=== PATIENT | male | born 1995 | race Caucasian/White ===

== ENCOUNTER 2019-08-22 13:22 | Emergency (ER) | payer SELFPAY ==
--- NOTE | 2019-08-22 13:48 | EDM.PDOC ---
ED HPI GENERAL MEDICAL PROBLEM - General Chief Complaint: Upper Extremity Injury/Pain Stated Complaint: LT FINGER DISCOLORATION Time Seen by Provider: 08/22/19 13:48 Source of Information: Reports: Patient History Limitations: Reports: No Limitations - History of Present Illness INITIAL COMMENTS - FREE TEXT/NARRATIVE: HISTORY AND PHYSICAL: History of present illness: Patient is a 24-year-old male who presents to the emergency room with complaints of pain, swelling and drainage from his right index finger. Patient states last night he noticed a pustule to the distal tip of his finger and did "pop a hole in it" and drained a moderate amount. He woke up this morning with moderate pain which he describes as a tight pressure to the fingertip. He denies any injury, trauma or falls associated with the digit. Tdap UTD. Offers no systemic complaints. Review of systems: As per history of present illness and below otherwise all systems reviewed and negative. Past medical history: As per history of present illness and as reviewed below otherwise noncontributory. Surgical history: As per history of present illness and as reviewed below otherwise noncontributory. Social history: See social history for further information Family history: As per history of present illness and as reviewed below otherwise noncontributory. Physical exam: General: Well-developed and well-nourished 24-year-old male. Alert and oriented. Nontoxic-appearing and in no acute distress. HEENT: Atraumatic, normocephalic, pupils equal and reactive bilaterally, negative for conjunctival pallor or scleral icterus, mucous membranes moist, TMs normal bilaterally, throat clear, neck supple, nontender, trachea midline. No drooling or trismus noted. No meningeal signs. No hot potato voice noted. Lungs: Clear to auscultation, breath sounds equal bilaterally, chest nontender. Heart: S1S2, regular rate and rhythm without overt murmur Skin: Right index finger is loosely erythematous and tender to palpation. Unsure site noted to the pad of the distal fingertip. No area of fluctuance or induration. Otherwise remaining skin is intact, warm, dry. No lesions or rashes noted. Extremities: Atraumatic, moves all extremities per self without difficulty or deficits, negative for cords or calf pain. Neurovascular unremarkable. Neuro: Awake, alert, oriented. Cranial nerves II through XII unremarkable. Cerebellum unremarkable. Motor and sensory unremarkable throughout. Exam nonfocal. Notes: Area looks like a diffuse early cellulitis from the abscess he drained himself last evening to the distal tip of his finger. There does not appear to be anywhere that can be drained at this time. supportive care measures were reviewed and discussed. Voices understanding and is agreeable to plan of care. Denies any further questions or concerns at this time. Diagnostics: None Therapeutics: None Prescription: Bactrim DS Hydrocodone (#10) Impression: Cellulitis Plan: 1. The skin clean and dry. Continue to monitor the site for improvement. Take the antibiotic as directed. 2. Tylenol and/or ibuprofen as needed for pain management. [place] for moderate to severe pain. This medication may cause drowsiness so do not take it while driving or needing to be functioning outside of the house. 3. Follow-up with your primary caregiver as we discussed. Return to the ED as needed and as discussed. Definitive disposition and diagnosis as appropriate pending reevaluation and review of above. - Related Data Allergies Allergy/AdvReac Type Severity Reaction Status Date / Time No Known Allergies Allergy Verified 08/22/19 13:55 Home Meds: Home Meds Hydrocodone/Acetaminophen [Hydrocodon-Acetaminoph 7.5-325] 1 each PO Q6HR PRN # 10 tablet 08/22/19 [Rx] Sulfamethoxazole/Trimethoprim [Bactrim Ds Tablet] 1 each PO BID 10 Days #20 tablet 08/22/19 [Rx] Review of Systems - Review of Systems Review Of Systems: Comprehensive ROS is negative, except as noted in HPI. ED EXAM, GENERAL - Physical Exam Exam: See Below (See dictation) Departure - Departure Time of Disposition: 14:03 Disposition: Home, Self-Care 01 Clinical Impression: Cellulitis - Discharge Information Prescriptions: Hydrocodone/Acetaminophen [Hydrocodon-Acetaminoph 7.5-325] 1 each PO Q6HR PRN # 10 tablet PRN Reason: Pain Sulfamethoxazole/Trimethoprim [Bactrim Ds Tablet] 1 each PO BID 10 Days #20 tablet Instructions: Cellulitis, Adult, [id number] Referrals: PCP,None [Primary Care Provider] - Forms: ED Department Discharge Additional Instructions: The following information is given to patients seen in the emergency department who are being discharged to home. This information is to outline your options for follow-up care. We provide all patients seen in our emergency department with a follow-up referral. The need for follow-up, as well as the timing and circumstances, are variable depending upon the specifics of your emergency department visit. If you don't have a primary care physician on staff, we will provide you with a referral. We always advise you to contact your personal physician following an emergency department visit to inform them of the circumstance of the visit and for follow-up with them and/or the need for any referrals to a consulting specialist. The emergency department will also refer you to a specialist when appropriate. This referral assures that you have the opportunity for follow-up care with a specialist. All of these measure are taken in an effort to provide you with optimal care, which includes your follow-up. Under all circumstances we always encourage you to contact your private physician who remains a resource for coordinating your care. When calling for follow-up care, please make the office aware that this follow-up is from your recent emergency room visit. If for any reason you are refused follow-up, please contact the [facility] Emergency Department at and asked to speak to the emergency department charge nurse. [facility] [address] [place] [address] [facility] [address] [place] [id number] 1. The skin clean and dry. Continue to monitor the site for improvement. Epsom salt soaks 2-3 times daily. Take the antibiotic as directed. 2. Tylenol and/or ibuprofen as needed for pain management. [place] for moderate to severe pain. This medication may cause drowsiness so do not take it while driving or needing to be functioning outside of the house. 3. Follow-up with your primary caregiver as we discussed. Return to the ED as needed and as discussed. Sepsis Event Note - Focused Exam Date Exam was Performed: 08/22/19 Time Exam was Performed: 13:58
== END 2019-08-22 14:28 | disposition home or self-care (01) ==
LOC: MW.ED 13:22
DX: L03.011 Cellulitis of right finger (principal)
CPT/HCPCS: 99282; 99283

== ENCOUNTER 2019-08-30 17:47 | Emergency (ER) | payer SELFPAY ==
[2019-08-30] MEDS ORDERED: Bupivacaine 0.25% 10 ML SDV INJECT ONE (17:58)
[2019-08-30] MEDS ORDERED: Doxycycline 100 MG Cap PO ONE (18:00)
--- NOTE | 2019-08-30 18:00 | EDM.PDOC ---
ED HPI GENERAL MEDICAL PROBLEM - General Chief Complaint: Skin Complaint Stated Complaint: INFECTION ON RIGHT FINGER Time Seen by Provider: 08/30/19 17:52 Source of Information: Reports: Patient History Limitations: Reports: No Limitations - History of Present Illness INITIAL COMMENTS - FREE TEXT/NARRATIVE: HISTORY AND PHYSICAL: History of present illness: Patient is a 24-year-old male who presents to the emergency room for second time with complaints of an infection to his right distal index finger. I initially saw this patient on 08/22/2019 when he noticed a pustule to the distal tip of his pad of his finger. He states he popped a hole in it and a moderate amount of drainage had came from the site. He was placed on Bactrim DS. Over the next couple days he states it started to look better but over the past 3 to 4 days it has gotten worse and he feels like the drainage is collecting in the tip of his finger again. He has been keeping the finger tightly wrapped in a nonstick dressing. Does have some skin sloughing noted. Patient denies any fever, chills, headache, change in vision, syncope or near syncope. Denies any chest pain, back pain, shortness of breath or cough. Denies any GI or symptoms. Patient has been eating and drinking appropriately. Review of systems: As per history of present illness and below otherwise all systems reviewed and negative. Past medical history: As per history of present illness and as reviewed below otherwise noncontributory. Surgical history: As per history of present illness and as reviewed below otherwise noncontributory. Social history: See social history for further information Family history: As per history of present illness and as reviewed below otherwise noncontributory. Physical exam: General: Well-developed and well-nourished 24-year-old male. Alert and oriented. Nontoxic-appearing and in no acute distress. HEENT: Atraumatic, normocephalic, pupils equal and reactive bilaterally, negative for conjunctival pallor or scleral icterus, mucous membranes moist, trachea midline. No drooling or trismus noted. No meningeal signs. No hot potato voice noted. Lungs: Clear to auscultation, breath sounds equal bilaterally Skin: Skin sloughing is noted to the pad of the right index finger with a centralized macerated white fluctuant center. Diffuse erythema noted to the surrounding skin. Extremities: Atraumatic, moves all extremities per self without difficulty or deficits, negative for cords or calf pain. Neurovascular unremarkable. Neuro: Awake, alert, oriented. Cranial nerves II through XII unremarkable. Cerebellum unremarkable. Motor and sensory unremarkable throughout. Exam nonfocal. Notes: Skin sloughing is noted to the pad of the right index finger with a centralized macerated white fluctuant center. Diffuse erythema noted to the surrounding skin. Bupivacaine digital block was used for anesthetics of I&D. Dr Lange, attending MD, performing I&D. "Through and through" felon I&D of right index finger. Fourth inch iodoform sling was placed through the lateral incision and loosely tied to keep incision site open. Purulent drainage did come for the center site. Thorough education was done with the patient about needing to be re-seen within 48 hours, whether that is in the emergency room or a hand surgeon of his choice. Follow-up phone numbers and locations were given to him.Supportive care measures were reviewed and discussed. Voices understanding and is agreeable to plan of care. Denies any further questions or concerns at this time. Diagnostics: None Therapeutics: Bupivacaine, Doxycycline Prescription: Doxycycline, Hydrocodone Impression: Felon right index finger Plan: 1. Keep the area clean and dry. Continue to monitor for signs of improvement. Packing to be removed and wound rechecked in 48 hours. 2. Antibiotic changed to doxycycline. Take 1 tab twice daily over the next 10 days. Tylenol and/or ibuprofen as needed for pain management. [place] for moderate to severe pain. This medication may cause drowsiness so do not take it while driving or needing to be functioning outside of the house. 3. Please follow-up with Hand Surgeon or Orthopedics within the next few days to continue to monitor. Return to the ED as needed and as discussed. Definitive disposition and diagnosis as appropriate pending reevaluation and review of above. R index finger Pain Score (Numeric/FACES): 10 - Related Data Allergies Allergy/AdvReac Type Severity Reaction Status Date / Time No Known Allergies Allergy Verified 08/30/19 17:59 Home Meds: Home Meds Hydrocodone/Acetaminophen [Hydrocodon-Acetaminoph 7.5-325] 1 each PO Q6HR PRN # 10 tablet 08/22/19 [Rx] Sulfamethoxazole/Trimethoprim [Bactrim Ds Tablet] 1 each PO BID 10 Days #20 tablet 08/22/19 [Rx] Past Medical History - Past Health History Medical/Surgical History: Denies Medical/Surgical History - Infectious Disease History Infectious Disease History: Reports: None Social & Family History - Family History Family Medical History: Noncontributory ED ROS GENERAL - Review of Systems Review Of Systems: Comprehensive ROS is negative, except as noted in HPI. ED EXAM, SKIN/RASH Exam: See Below (See dictation) ED SKIN PROCEDURES - I&D Site: Right index finger Skin Prep: Chlorhexidine (Hibiciens), Saline, Sterile Drape Local Anesthesia: Lidocaine: Other (Bupivacaine) Local Anesthetic Volume: 4cc Area Incised With: 11 Blade Drainage: Purulent, Bloody, Small Amount Probed to Break Up Loculations: Yes Packed With: 1/4 in. Iodoform Sterile Dressing: None (Nonstick tube gauze bulky dressing) Complications: No Progress/Comments: "Through and through" felon I&D of right index finger. Fourth inch iodoform sling was placed through the lateral incision and loosely tied to keep incision site open. Purulent drainage did come for the center site. Thorough education was done with the patient about needing to be re-seen within 48 hours, whether that is in the emergency room or a hand surgeon of his choice. Follow-up phone numbers and locations were given to him. Course - Vital Signs Last Recorded V/S: Last Vital Signs Temp 97.4 F 08/30/19 17:55 Pulse 119 H 08/30/19 17:55 Resp 17 08/30/19 17:55 BP 144/86 H 08/30/19 17:55 Pulse Ox 99 08/30/19 17:55 - Orders/Labs/Meds Meds: Medications Discontinued Medications Generic Name Dose Route Start Last Admin Trade Name Freq PRN Reason Stop Dose Admin Bupivacaine HCl 10 ml 08/30/19 17:58 08/30/19 18:06 Sensorcaine-Mpf 0.25% INJECT 08/30/19 17:59 10 ml ONETIME ONE Administration Doxycycline Hyclate 100 mg 08/30/19 18:00 08/30/19 18:06 Vibramycin PO 08/30/19 18:01 100 mg ONETIME ONE Administration Lidocaine HCl 5 ml 08/30/19 17:57 08/30/19 18:04 Xylocaine-Mpf 1% INJECT 08/30/19 17:58 Not Given ONETIME ONE Departure - Departure Time of Disposition: 18:28 Disposition: Home, Self-Care 01 Clinical Impression: Felon of finger of right hand - Discharge Information Instructions: Cellulitis, Adult, [id number] Referrals: PCP,None [Primary Care Provider] - Forms: ED Department Discharge Additional Instructions: The following information is given to patients seen in the emergency department who are being discharged to home. This information is to outline your options for follow-up care. We provide all patients seen in our emergency department with a follow-up referral. The need for follow-up, as well as the timing and circumstances, are variable depending upon the specifics of your emergency department visit. If you don't have a primary care physician on staff, we will provide you with a referral. We always advise you to contact your personal physician following an emergency department visit to inform them of the circumstance of the visit and for follow-up with them and/or the need for any referrals to a consulting specialist. The emergency department will also refer you to a specialist when appropriate. This referral assures that you have the opportunity for follow-up care with a specialist. All of these measure are taken in an effort to provide you with optimal care, which includes your follow-up. Under all circumstances we always encourage you to contact your private physician who remains a resource for coordinating your care. When calling for follow-up care, please make the office aware that this follow-up is from your recent emergency room visit. If for any reason you are refused follow-up, please contact the [facility] Emergency Department at and asked to speak to the emergency department charge nurse. [facility] [address] [place] [address] [id number] [address] [id number] 1. Keep the area clean and dry. Continue to monitor for signs of improvement. Packing to be removed and wound rechecked in 48 hours. 2. Antibiotic changed to doxycycline. Take 1 tab twice daily over the next 10 days. Tylenol and/or ibuprofen as needed for pain management. [place] for moderate to severe pain. This medication may cause drowsiness so do not take it while driving or needing to be functioning outside of the house. 3. Please follow-up with Hand Surgeon or Orthopedics within the next few days to continue to monitor. Return to the ED as needed and as discussed. Sepsis Event Note - Evaluation Sepsis Screening Result: No Definite Risk - Focused Exam Vital Signs: Vital Signs Temp Pulse Resp BP Pulse Ox 08/30/19 17:55 97.4 F 119 H 17 144/86 H 99 Date Exam was Performed: 08/30/19 Time Exam was Performed: 18:26
== END 2019-08-30 18:49 | disposition home or self-care (01) ==
LOC: MW.ED 17:47
DX: L03.011 Cellulitis of right finger (principal)
CPT/HCPCS: 26011; 99283; A9270; J3490; 10060; 99282